=== PATIENT | male | born 1940 | race Caucasian/White ===

== ENCOUNTER 2018-08-22 21:30 | Inpatient (IN) | payer OTHER ==
[~2018-08-22] VITALS: Ht 167.6 cm; Wt 100.9 kg
[2018-08-22] MEDS ORDERED: ASPIRIN 81 MG TABLET CHEW PO ONE (22:00)
[2018-08-22] MEDS ORDERED: ASPIRIN 325 MG TABLET PO ONE (22:00)
[2018-08-22] MEDS ORDERED: MAALOX/HYOSCYAMINE/LIDOCAINE 45 ML BTL PO ONE (22:00)
--- NOTE | 2018-08-22 22:02 | NUR ---
INCREASED SOB, HEART BURN AND PALPITATIONS X 1 WEEK, BIB [facility]
[2018-08-22] MEDS: ALBUTEROL/IPRATROPIUM 2.5MG/0.5MG, 3 ML NPPB SCH ×2 (22:05→23:08)
[2018-08-22] MEDS ORDERED: ASPIRIN 81 MG TABLET CHEW ONE (22:18)
[2018-08-22] MEDS ORDERED: MAALOX/HYOSCYAMINE/LIDOCAINE 45 ML BTL ONE (22:18)
[2018-08-22] MEDS ORDERED: PLEASE ENTER ALLERGIES MC SCH (22:30)
[2018-08-22 22:41] LABS: BASOPHILS # (AUTO) 0.02 x10^3/uL (0-0.1); BASOPHILS % (AUTO) 0 % (0-1); EOSINOPHILS # (AUTO) 0.93 x10^3/uL (0-0.4); EOSINOPHILS % (AUTO) 7 % (1-7); LYMPHOCYTES # (AUTO) 1.28 x10^3/uL (1-3.4); LYMPHOCYTES % (AUTO) 9 % (22-44); MD NO; MEAN CORPUSCULAR HEMOGLOBIN 28.4 pg (27.5-34.5); MEAN CORPUSCULAR HGB CONC 33.7 g/dL (33.2-36.2); MEAN CORPUSCULAR VOLUME 84.3 fL (81-97); MEAN PLATELET VOLUME 7.2 fL (7.4-10.4); MONOCYTES % (AUTO) 1 % (2-9); NEUTROPHILS # (AUTO) 11.33 x10^3/uL (1.8-6.8); NEUTROPHILS % (AUTO) 83 % (42-75); PLATELET COUNT 309 x10^3/uL (130-400); RED BLOOD COUNT 5.07 x10^6/uL (4.38-5.82); RED CELL DISTRIBUTION WIDTH 14.4 % (9.4-14.8)
[2018-08-22 22:43] LABS: ALANINE AMINOTRANSFERASE 43 U/L (12-78); ALBUMIN 4.1 g/dL (3.4-5.0); ANION GAP 10 mmol/L (5-15); CALCIUM 9.1 mg/dL (8.5-10.1); CHLORIDE 96 mmol/L (98-107)
[2018-08-22 22:48] LABS: ALKALINE PHOSPHATASE 114 U/L (45-117); BILIRUBIN,TOTAL 0.4 mg/dL (0.2-1.0); CREATININE 1.11 mg/dL (0.7-1.3); FREE T4 (FREE THYROXINE) 0.99 ng/dL (0.76-1.46); TROPONIN I < 0.015 ng/mL (0.000-0.045)
[2018-08-22 22:54] LABS: THYROID STIMULATING HORMONE 0.848 mIU/L (0.358-3.740)
[2018-08-22] MEDS ORDERED: ASPI-496 PO (23:09)
[2018-08-22] MEDS ORDERED: AMLO5TAB10 PO (23:09)
[2018-08-22] MEDS ORDERED: ATOR20TA86 PO (23:19)
[2018-08-22] MEDS ORDERED: BUDE0.5P PO (23:29)
[2018-08-22] MEDS ORDERED: BUSP10TA PO (23:30)
[2018-08-22] MEDS ORDERED: CETI1TAB78 PO (23:31)
[2018-08-22] MEDS ORDERED: FURO40TA6 PO (23:32)
[2018-08-22] MEDS ORDERED: DICL-249 PO (23:32)
[2018-08-22] MEDS ORDERED: HYDR-3342 PO (23:33)
[2018-08-22] MEDS ORDERED: GABA300C10 PO (23:33)
[2018-08-22] MEDS ORDERED: METF500T17 PO (23:34)
[2018-08-22] MEDS ORDERED: NADO80TA PO (23:35)
[2018-08-22] MEDS ORDERED: MONT10TA9 PO (23:35)
[2018-08-22] MEDS ORDERED: POTA25TA4 PO (23:36)
[2018-08-22] MEDS ORDERED: OMEP-110 PO (23:36)
[2018-08-22] MEDS ORDERED: TRAZ-137 PO (23:37)
[2018-08-22] MEDS ORDERED: TAMS0.4C2 PO (23:37)
[2018-08-22] MEDS ORDERED: VALS1TAB22 PO (23:38)
--- NOTE | 2018-08-22 23:38 | NUR ---
pt in nad at this time resting, on all monitors
--- NOTE | 2018-08-23 00:44 | NUR ---
break rn. pt resting n [place], denies sob or needs, monitors in place, call light within reach.
[2018-08-23] MEDS ORDERED: ALBUTEROL/IPRATROPIUM 2.5MG/0.5MG, 3 ML HHN SCH (02:00)
[2018-08-23] MEDS ORDERED: POTASSIUM CHLORIDE 20 MEQ TAB.ER.PRT PO ONE (02:00)
[2018-08-23] MEDS ORDERED: ACETAMINOPHEN 325 MG TABLET PO PRN (02:00)
--- NOTE | 2018-08-23 02:34 | NUR ---
report to rn on t2 to floor in nad
[2018-08-23 02:43] VITALS: BP 160/73
[2018-08-23] MEDS ORDERED: ACET325C3 PO (03:54)
[2018-08-23] MEDS ORDERED: GABA300C PO (03:54)
[2018-08-23] MEDS ORDERED: HYDR-3342 PO (03:54)
[2018-08-23] MEDS ORDERED: BUDE10.2 INH (03:54)
[2018-08-23] MEDS ORDERED: OMEG100023 PO (03:54)
[2018-08-23] MEDS ORDERED: CHOL10002 PO (03:54)
[2018-08-23] MEDS ORDERED: METF500T27 PO (03:54)
[2018-08-23] MEDS ORDERED: CETI-158 PO (03:54)
[2018-08-23] MEDS ORDERED: VALS80TA3 PO (03:54)
[2018-08-23] MEDS ORDERED: AMLO-150 PO (03:54)
[2018-08-23] MEDS ORDERED: NADO80TA PO (03:54)
[2018-08-23] MEDS ORDERED: OMEP20CA14 PO (03:54)
[2018-08-23] MEDS ORDERED: TRAZ150T62 PO (03:54)
[2018-08-23] MEDS ORDERED: MONT10TA9 PO (03:54)
[2018-08-23] MEDS ORDERED: TAMS0.4C2 PO (03:54)
[2018-08-23] MEDS ORDERED: CYAN500L4 PO (03:54)
[2018-08-23] MEDS ORDERED: RANI150T4 PO (03:54)
[2018-08-23] MEDS ORDERED: VENL75TA PO (03:54)
[2018-08-23] MEDS: AZITHROMYCIN 500 MG in SODIUM CHLORIDE 0.9% 250 ML IV SCH (04:05)
[2018-08-23] MEDS: methylPREDNISolone SOD SUCC 40 MG/ML IV SCH ×3 (04:05→18:29)
[2018-08-23] MEDS ORDERED: ASPIRIN 81 MG TABLET EC ONE (04:16)
[2018-08-23] MEDS ORDERED: ASPIRIN 81 MG TABLET CHEW ONE (04:19)
[2018-08-23] MEDS: ENOXAPARIN 40 MG/0.4 ML SQ SCH (04:20)
[2018-08-23] MEDS ORDERED: OMEPRAZOLE 20 MG CAPSULE.DR PO SCH (06:00)
[2018-08-23] MEDS: ASPIRIN 81 MG TABLET EC PO SCH (06:00)
[2018-08-23 07:26] VITALS: BP 143/67
[2018-08-23] MEDS ORDERED: PANTOPROZOLE 40MG TABLET PO SCH (07:30)
[2018-08-23] MEDS: BUDESONIDE 0.5 MG/2 ML INHA NPPB SCH ×2 (08:00→20:17)
[2018-08-23] MEDS: ALBUTEROL/IPRATROPIUM 2.5MG/0.5MG, 3 ML HHN SCH ×3 (08:00→20:17)
[2018-08-23] MEDS: CETIRIZINE 10 MG TABLET PO SCH (08:34)
[2018-08-23] MEDS: FUROSEMIDE 40 MG TABLET PO SCH ×2 (08:34→20:53)
[2018-08-23] MEDS: OMEGA-3/FISH OIL CAPSULE PO SCH ×3 (08:34→20:53)
[2018-08-23] MEDS: GABAPENTIN 300 MG CAPSULE PO SCH ×3 (08:34→20:53)
[2018-08-23] MEDS: CYANOCOBALAMIN 1,000 MCG TABLET PO SCH (08:36)
[2018-08-23] MEDS: BUSPIRONE 10 MG TABLET PO SCH ×3 (08:36→20:56)
[2018-08-23] MEDS: CHOLECALCIFEROL 1,000 UNIT TABLET PO SCH (08:36)
[2018-08-23] MEDS: VALSARTAN 80 MG TABLET PO SCH (08:36)
[2018-08-23] MEDS: BENZONATATE 100 MG CAPSULE PO SCH ×3 (08:36→20:53)
[2018-08-23] MEDS: FAMOTIDINE 20 MG TABLET PO SCH ×2 (08:36→20:56)
[2018-08-23] MEDS: VENLAFAXINE 75MG TABLET PO SCH ×3 (08:36→20:53)
[2018-08-23] MEDS: NADOLOL 80 MG PO SCH ×3 (08:38→20:56)
[2018-08-23] MEDS ORDERED: ATORVASTATIN 20 MG TABLET PO SCH (09:00)
[2018-08-23 12:16] LABS: BASOPHILS # (AUTO) 0.03 x10^3/uL (0-0.1); BASOPHILS % (AUTO) 0 % (0-1); EOSINOPHILS # (AUTO) 0.02 x10^3/uL (0-0.4); EOSINOPHILS % (AUTO) 0 % (1-7); LYMPHOCYTES # (AUTO) 1.42 x10^3/uL (1-3.4); LYMPHOCYTES % (AUTO) 12 % (22-44); MD NO; MEAN CORPUSCULAR HEMOGLOBIN 28.1 pg (27.5-34.5); MEAN CORPUSCULAR HGB CONC 33.3 g/dL (33.2-36.2); MEAN CORPUSCULAR VOLUME 84.3 fL (81-97); MEAN PLATELET VOLUME 7.3 fL (7.4-10.4); MONOCYTES % (AUTO) 2 % (2-9); NEUTROPHILS # (AUTO) 9.81 x10^3/uL (1.8-6.8); NEUTROPHILS % (AUTO) 85 % (42-75); PLATELET COUNT 338 x10^3/uL (130-400); RED BLOOD COUNT 4.96 x10^6/uL (4.38-5.82); RED CELL DISTRIBUTION WIDTH 14.6 % (9.4-14.8)
[2018-08-23 12:20] LABS: ANION GAP 10 mmol/L (5-15); CALCIUM 9.7 mg/dL (8.5-10.1); CHLORIDE 97 mmol/L (98-107)
[2018-08-23] MEDS ORDERED: CALCIUM CARBONATE 500 MG TAB.CHEW PO PRN (12:30)
[2018-08-23] MEDS: GUAIFENESIN 200 MG TABLET PO SCH ×3 (12:40→20:53)
[2018-08-23] MEDS: INSULIN LISPRO 100 UNITS/ML, PEN SQ-INSULIN SCH ×3 (13:36→20:54)
[2018-08-23 14:34] VITALS: BP 139/64
[2018-08-23 16:00] VITALS: BP 154/67
[2018-08-23 17:04] LABS: TROPONIN I < 0.015 ng/mL (0.000-0.045)
[2018-08-23 19:33] VITALS: BP 147/70
[2018-08-23] MEDS ORDERED: OMEPRAZOLE 20 MG CAPSULE.DR PO ONE (21:00)
[2018-08-23] MEDS ORDERED: TAMSULOSIN 0.4 MG CAP.ER.24H PO SCH (21:00)
[2018-08-23] MEDS ORDERED: AMLODIPINE 5 MG TABLET PO SCH (21:00)
[2018-08-23] MEDS ORDERED: TRAZODONE 150MG TABLET PO SCH (21:00)
[2018-08-23] MEDS ORDERED: MONTELUKAST 10 MG TABLET PO SCH (21:00)
[2018-08-23 22:50] LABS: TROPONIN I < 0.015 ng/mL (0.000-0.045)
[2018-08-24 01:56] VITALS: BP 139/64
[2018-08-24] MEDS: ENOXAPARIN 40 MG/0.4 ML SQ SCH (02:57)
[2018-08-24] MEDS: AZITHROMYCIN 500 MG in SODIUM CHLORIDE 0.9% 250 ML IV SCH (02:57)
[2018-08-24] MEDS: methylPREDNISolone SOD SUCC 40 MG/ML IV SCH (02:57)
[2018-08-24] MEDS: ALBUTEROL/IPRATROPIUM 2.5MG/0.5MG, 3 ML HHN SCH ×3 (03:05→14:32)
[2018-08-24] MEDS: GUAIFENESIN 200 MG TABLET PO SCH ×3 (05:39→17:43)
[2018-08-24] MEDS: ASPIRIN 81 MG TABLET EC PO SCH (05:39)
[2018-08-24 06:02] LABS: ANION GAP 9 mmol/L (5-15); CALCIUM 9.1 mg/dL (8.5-10.1); CHLORIDE 96 mmol/L (98-107)
[2018-08-24 06:04] LABS: CREATININE 1.18 mg/dL (0.7-1.3)
[2018-08-24 06:13] LABS: BASOPHILS # (AUTO) 0.03 x10^3/uL (0-0.1); BASOPHILS % (AUTO) 0 % (0-1); EOSINOPHILS # (AUTO) 0.01 x10^3/uL (0-0.4); EOSINOPHILS % (AUTO) 0 % (1-7); LYMPHOCYTES # (AUTO) 1.18 x10^3/uL (1-3.4); LYMPHOCYTES % (AUTO) 8 % (22-44); MD NO; MEAN CORPUSCULAR HEMOGLOBIN 28.3 pg (27.5-34.5); MEAN CORPUSCULAR HGB CONC 33.7 g/dL (33.2-36.2); MONOCYTES # (AUTO) 0.84 x10^3/uL (0.2-0.8); MONOCYTES % (AUTO) 6 % (2-9); NEUTROPHILS # (AUTO) 12.44 x10^3/uL (1.8-6.8); NEUTROPHILS % (AUTO) 86 % (42-75); PLATELET COUNT 273 x10^3/uL (130-400); RED BLOOD COUNT 4.31 x10^6/uL (4.38-5.82); RED CELL DISTRIBUTION WIDTH 14.4 % (9.4-14.8)
[2018-08-24 07:44] VITALS: BP 151/70
[2018-08-24] MEDS: BUDESONIDE 0.5 MG/2 ML INHA NPPB SCH (09:00)
[2018-08-24] MEDS: CYANOCOBALAMIN 1,000 MCG TABLET PO SCH (09:07)
[2018-08-24] MEDS: BUSPIRONE 10 MG TABLET PO SCH ×2 (09:07→17:42)
[2018-08-24] MEDS: GABAPENTIN 300 MG CAPSULE PO SCH ×2 (09:07→17:42)
[2018-08-24] MEDS: VENLAFAXINE 75MG TABLET PO SCH ×2 (09:07→17:43)
[2018-08-24] MEDS: CETIRIZINE 10 MG TABLET PO SCH (09:08)
[2018-08-24] MEDS: FAMOTIDINE 20 MG TABLET PO SCH (09:08)
[2018-08-24] MEDS: BENZONATATE 100 MG CAPSULE PO SCH ×2 (09:08→17:43)
[2018-08-24] MEDS: FUROSEMIDE 40 MG TABLET PO SCH (09:08)
[2018-08-24] MEDS: OMEPRAZOLE 20 MG CAPSULE.DR PO SCH ×2 (09:08→16:30)
[2018-08-24] MEDS: OMEGA-3/FISH OIL CAPSULE PO SCH ×2 (09:08→17:42)
[2018-08-24] MEDS: CHOLECALCIFEROL 1,000 UNIT TABLET PO SCH (09:09)
[2018-08-24] MEDS: VALSARTAN 80 MG TABLET PO SCH (09:09)
[2018-08-24] MEDS: NADOLOL 80 MG PO SCH ×2 (09:13→16:00)
[2018-08-24] MEDS: INSULIN LISPRO 100 UNITS/ML, PEN SQ-INSULIN SCH ×2 (09:14→12:07)
[2018-08-24] MEDS ORDERED: SODIUM CHLORIDE 0.9%, 500ML IVBOLUS ONE (13:30)
[2018-08-24 14:44] VITALS: BP 161/70
[2018-08-24] MEDS ORDERED: PRED20TA PO (16:59)
[2018-08-24] MEDS ORDERED: AMOX1TAB12 PO (16:59)
[2018-08-24] MEDS ORDERED: ATORVASTATIN 20 MG TABLET PO SCH (21:00)
[2018-08-24] MEDS ORDERED: AMOXICILLIN/CLAV 875-125MG TABLET PO SCH (21:00)
[2018-08-24] MEDS ORDERED: DOXYCYCLINE 100MG TABLET PO SCH (21:00)
[2018-08-25] MEDS ORDERED: AZITHROMYCIN 500 MG TABLET PO SCH (09:00)
== END 2018-08-24 18:49 | disposition home or self-care (01) | DRG 189 ==
LOC: ED 22:11 → EDIP 08-23 01:27 → 4EST 08-23 02:46
PROVIDERS: ADMIT Internal Medicine; ATTEND Internal Medicine
DX: J96.21 Acute and chronic respiratory failure with hypoxia (principal); J44.1 Chronic obstructive pulmonary disease with (acute) exacerbation; E87.1 Hypo-osmolality and hyponatremia; E87.2 Acidosis; J44.0 Chronic obstructive pulmonary disease with (acute) lower respiratory infection; E86.1 Hypovolemia; E87.6 Hypokalemia; F43.10 Post-traumatic stress disorder, unspecified; F51.04 Psychophysiologic insomnia; I49.1 Atrial premature depolarization; I49.40 Unspecified premature depolarization; I50.9 Heart failure, unspecified; J84.10 Pulmonary fibrosis, unspecified; K21.9 Gastro-esophageal reflux disease without esophagitis; M17.0 Bilateral primary osteoarthritis of knee; N40.0 Benign prostatic hyperplasia without lower urinary tract symptoms; Z87.891 Personal history of nicotine dependence; Z99.81 Dependence on supplemental oxygen; B96.89 Other specified bacterial agents as the cause of diseases classified elsewhere
CPT/HCPCS: 36415; 84145; 99285; J7620; J7626; 71046; 80048; 80053; 82962; 83605; 83735; 83880; 84439; 84443; 84484; 85025; 87040; 93005; 94640; G0378; J0456; J1650; J1815; J2920; J7040; J7050; J7512

== ENCOUNTER 2019-05-14 22:27 | Emergency (ER) | payer OTHER ==
[~2019-05-14] VITALS: Ht 167.6 cm; Wt 102.9 kg
[~2019-05-14 22:27] MED LIST: ACET325C3 PO; AMLO-150 PO; AMLO5TAB10 PO; AMOX1TAB12 PO; ASPI-496 PO; ATOR20TA86 PO; BUDE0.5P PO; BUDE10.2 INH; BUSP10TA PO; CETI-158 PO; CETI1TAB78 PO; CHOL10002 PO; CYAN500L4 PO; DICL-249 PO; FURO40TA6 PO; GABA300C PO; GABA300C10 PO; HYDR-3342 PO; METF500T17 PO; METF500T27 PO; MONT10TA9 PO; NADO80TA PO; OMEG100023 PO; OMEP-110 PO; OMEP20CA14 PO; POTA25TA4 PO; PRED20TA PO; RANI150T4 PO; TAMS0.4C2 PO; TRAZ-137 PO; TRAZ150T62 PO; VALS1TAB22 PO; VALS80TA3 PO; VENL75TA PO
[2019-05-14] MEDS ORDERED: CLON1TAB23 PO (23:15)
[2019-05-14] MEDS ORDERED: TRAZ50TA66 PO (23:15)
[2019-05-14 23:31] LABS: BASOPHILS # (AUTO) 0.07 x10^3/uL (0-0.1); BASOPHILS % (AUTO) 1 % (0-1); EOSINOPHILS # (AUTO) 1.37 x10^3/uL (0-0.4); EOSINOPHILS % (AUTO) 15 % (1-7); LYMPHOCYTES # (AUTO) 2.26 x10^3/uL (1-3.4); LYMPHOCYTES % (AUTO) 25 % (22-44); MD NO; MEAN CORPUSCULAR HEMOGLOBIN 27.6 pg (27.5-34.5); MEAN CORPUSCULAR HGB CONC 32.4 g/dL (33.2-36.2); MEAN CORPUSCULAR VOLUME 85.1 fL (81-97); MEAN PLATELET VOLUME 5.9 fL (7.4-10.4); MONOCYTES # (AUTO) 0.88 x10^3/uL (0.2-0.8); MONOCYTES % (AUTO) 10 % (2-9); NEUTROPHILS # (AUTO) 4.35 x10^3/uL (1.8-6.8); NEUTROPHILS % (AUTO) 49 % (42-75); PLATELET COUNT 359 x10^3/uL (130-400); RED BLOOD COUNT 4.96 x10^6/uL (4.38-5.82); RED CELL DISTRIBUTION WIDTH 15.1 % (9.4-14.8)
[2019-05-14 23:43] LABS: ALANINE AMINOTRANSFERASE 35 U/L (12-78); ALBUMIN 3.7 g/dL (3.4-5.0); ANION GAP 3 mmol/L (5-15); CHLORIDE 97 mmol/L (98-107); CREATININE 0.87 mg/dL (0.7-1.3)
[2019-05-14 23:47] LABS: ALKALINE PHOSPHATASE 81 U/L (45-117); BILIRUBIN,TOTAL 0.6 mg/dL (0.2-1.0); TOTAL PROTEIN 8.1 g/dL (6.4-8.2); TROPONIN I < 0.015 ng/mL (0.000-0.045)
[2019-05-15] MEDS ORDERED: ALBUTEROL SULFATE 2.5 MG/3 ML NPPB ONE
--- NOTE | 2019-05-15 00:01 | NUR ---
Received report assumed patient care. RNx2 to bedside, patient receiving breathing treatment at the moment. Awaiting response.
[2019-05-15] MEDS ORDERED: hydrALAzine 20 MG/ML, 1ML ONE (00:43)
--- NOTE | 2019-05-15 00:53 | NUR ---
RN to bedside, adminstered medication per mar. Patient still has elevated blood pressure, verbalizes understanding to allow right arm to relax at side.
[2019-05-15] MEDS ORDERED: hydrALAzine 20 MG/ML, 1ML IV ONE (01:00)
[2019-05-15 01:08] VITALS: BP 186/73
--- NOTE | 2019-05-15 01:25 | NUR ---
Informed provider of blood pressure improving and trending in the correct. Received confirmation that discharge was appropriate. Patient and family member agreeable to discharge.
== END 2019-05-15 01:28 | disposition home or self-care (01) ==
LOC: ED 23:38
DX: J44.1 Chronic obstructive pulmonary disease with (acute) exacerbation (principal); I11.0 Hypertensive heart disease with heart failure; I50.9 Heart failure, unspecified; Z87.891 Personal history of nicotine dependence
CPT/HCPCS: 36415; 71045; 80053; 83880; 84484; 85025; 93005; 94640; 96374; 99284; J0360; J7512; J7613